=== PATIENT | female | born 1995 | race Caucasian/White ===

== ENCOUNTER 2019-06-26 15:18 | Outpatient (CLI) | payer BC ==
[2019-06-26] MEDS ORDERED: METHYLPREDNISONE PO (16:10)
[2019-06-26] MEDS ORDERED: LORA-247 PO (16:10)
[2019-06-26] MEDS ORDERED: ETHI1TAB28 PO (16:10)
[2019-06-26] MEDS ORDERED: MULT-252 PO (16:10)
[2019-06-26] MEDS ORDERED: AUMENTIN PO (16:10)
== END 2019-06-26 23:59 | disposition home or self-care (01) ==
LOC: STAR 15:18
PROVIDERS: ATTEND Otolaryngology
DX: Z02.9 Encounter for administrative examinations, unspecified (principal)